=== PATIENT | male | born 1970 | race Caucasian/White ===

== ENCOUNTER 2020-07-04 09:00 | Emergency (ER) | payer BC ==
[~2020-07-04] VITALS: Ht 177.8 cm; Wt 81.6 kg
[~2020-07-04 09:00] MED LIST: DAILY MULTIPLE1 TA6 PO
[2020-07-04] MEDS ORDERED: MEDROL DOSEPAK4 MG PO (11:25)
[2020-07-04] MEDS ORDERED: PEPCID20 MG PO (11:25)
[2020-07-04] MEDS ORDERED: CLARITIN10 MG PO (11:25)
[2020-07-04] MEDS ORDERED: EPIPEN 2-P0.3 MG/0.3 IJ (11:25)
== END 2020-07-04 11:32 | disposition home or self-care (01) ==
LOC: ED 09:00
DX: T78.3XXA Angioneurotic edema, initial encounter (principal); R22.0 Localized swelling, mass and lump, head; R13.10 Dysphagia, unspecified; Z79.899 Other long term (current) drug therapy

== ENCOUNTER → 2020-07-28 | Outpatient (CLI) | payer BC ==
[~2020-07-28] MED LIST changes: +CLARITIN10 MG PO; +EPIPEN 2-P0.3 MG/0.3 IJ; +MEDROL DOSEPAK4 MG PO; +PEPCID20 MG PO
[2020-07-28 13:23] LABS: BASO # 0.1 10*3/uL (0.0-0.1); BASO % 0.8 % (0.0-1.0); EOS # 0.2 10*3/uL (0.0-0.4); HEMATOCRIT 45.8 % (42.0-52.0); LYMPH # 1.8 10*3/uL (1.3-4.4); LYMPH % 28.5 % (27.0-41.0); MEAN CORPUSCULAR HGB 30.8 pg (27.0-31.0); MEAN CORPUSCULAR HGB CONC 34.3 g/dl (33.0-37.0); MEAN PLATELET VOLUME 10.2 fl (9.6-12.3); MONO # 0.5 10*3/uL (0.1-1.0); MONO % 7.3 % (3.0-9.0); NEUT # 3.8 10*3/uL (2.3-7.9); NEUT % 60.1 % (47.0-73.0); PLATELET COUNT AUTOMATED 241 10*3/uL (130-400); RED BLOOD COUNT 5.09 10*6/uL (4.50-5.90); RED CELL DISTRI WIDTH 12.6 % (0-14.5); WHITE BLOOD COUNT 6.3 10*3/uL (4.8-10.8)
[2020-07-29 12:07] LABS: COMPLEMENT C4 29 mg/dL (12-38)
[2020-07-29 15:08] LABS: ANTI-DSDNA ANTIBODIES <1 IU/mL (0-9); ANTI-RNP ANTIBODIES 0.2 AI (0.0-0.9)
[2020-07-31 19:23] LABS: C1 ESTERACE INHIB,TOTAL 33 mg/dL (21-39)
== END | disposition home or self-care (01) ==
LOC: LAB 12:55
PROVIDERS: ATTEND Allergy & Immunology
DX: D89.89 Other specified disorders involving the immune mechanism, not elsewhere classified (principal)

== ENCOUNTER 2021-05-15 08:49 | Emergency (ER) | payer BC ==
[~2021-05-15] VITALS: Ht 177.8 cm; Wt 83.9 kg
== END 2021-05-15 10:16 | disposition home or self-care (01) ==
LOC: ED 08:49
DX: U07.1 COVID-19 (principal)

== ENCOUNTER → 2021-05-18 | Outpatient (CLI) | payer BC | END | disposition home or self-care (01) | LOC: RAD 16:26 | PROVIDERS: ATTEND Family Medicine | DX: U07.1 COVID-19 (principal); R05.9 Cough, unspecified; R91.8 Other nonspecific abnormal finding of lung field ==